=== PATIENT | male | born 1955 | race American Indian/Alaskan Native ===

== ENCOUNTER 2018-04-03 05:07 | Emergency (ER) | payer SELFPAY ==
[2018-04-03 06:02] LABS: Basophils % (Auto) 0.7 % (0.0-1.8); Eosinophils % (Auto) 0.7 % (0.0-4.3); Hematocrit 42.5 % (35.5-45.6); Hemoglobin 14.8 gm/dl (11.8-15.2); Lymphocytes # (Auto) 1.2 K/mm3 (1.2-5.4); Lymphocytes % (Auto) 21.1 % (13.4-35.0); Mean Corpuscular HGB Conc 35 % (32-34); Mean Corpuscular Hemoglobin 33 pg (28-32); Mean Corpuscular Volume 94 fl (84-94); Monocytes # (Auto) 0.6 K/mm3 (0.0-0.8); Monocytes % (Auto) 10.8 % (0.0-7.3); Platelet Count 196 K/mm3 (140-440); Red Blood Count 4.51 M/mm3 (3.65-5.03); Red Cell Distribution Width 13.5 % (13.2-15.2)
--- NOTE | 2018-04-03 06:09 | Emergency Department Report ---
ED General Adult HPI - General Chief complaint: BP Check / Ring removal req Stated complaint: OVERDOSE Time Seen by Provider: 04/03/18 06:07 Source: patient, EMS Mode of arrival: Stretcher Limitations: No Limitations - History of Present Illness Initial comments: Patient said he smoked cocaine at around 2:00 this morning. He currently does not have any complaints in the ED. -: This morning Improves with: none Worsens with: none Associated Symptoms: denies other symptoms Treatments Prior to Arrival: none - Related Data Previous Rx's Medication Instructions Recorded Last Taken Type HYDROcodone/APAP 5-325 [Carson 1 each PO Q6HR PRN #20 tablet 11/08/14 Unknown Rx 5-325 mg TAB] Naproxen [Naprosyn] 500 mg PO BID #30 tablet 11/08/14 Unknown Rx methOCARBAMOL [Robaxin] 500 mg PO BID #30 tab 11/08/14 Unknown Rx methylPREDNISolone [Medrol Dose 4 mg PO DAILY #6 tab 11/08/14 Unknown Rx Esteban] Allergies Allergy/AdvReac Type Severity Reaction Status Date / Time No Known Allergies Allergy Verified 04/03/18 05:15 ED Review of Systems ROS: Stated complaint: OVERDOSE Other details as noted in HPI Comment: All other systems reviewed and negative Constitutional: no symptoms reported Eyes: denies: eye pain ENT: denies: ear pain Respiratory: no symptoms reported Cardiovascular: denies: chest pain, palpitations, dyspnea on exertion Endocrine: no symptoms reported Gastrointestinal: denies: abdominal pain, nausea, vomiting, diarrhea Genitourinary: denies: urgency, frequency Musculoskeletal: denies: back pain, joint swelling Skin: denies: rash, change in color Neurological: denies: headache, weakness, numbness Psychiatric: denies: anxiety, depression, auditory hallucinations Hematological/Lymphatic: denies: easy bleeding, easy bruising ED Past Medical Hx - Past Medical History Hx COPD: Yes - Surgical History Additional Surgical History: back surgery - Social History Smoking Status: Current Every Day Smoker Substance Use Type: Cocaine - Medications Home Medications: Home Medications Medication Instructions Recorded Confirmed Last Taken Type HYDROcodone/APAP 5-325 [Carson 1 each PO Q6HR PRN #20 tablet 11/08/14 Unknown Rx 5-325 mg TAB] Naproxen [Naprosyn] 500 mg PO BID #30 tablet 11/08/14 Unknown Rx methOCARBAMOL [Robaxin] 500 mg PO BID #30 tab 11/08/14 Unknown Rx methylPREDNISolone [Medrol Dose 4 mg PO DAILY #6 tab 11/08/14 Unknown Rx Esteban] ED Physical Exam - General Limitations: No Limitations General appearance: alert, in no apparent distress - Head Head exam: Present: atraumatic. Absent: normocephalic, normal inspection - Eye Eye exam: Present: PERRL, EOMI. Absent: normal appearance Pupils: Present: normal accommodation - ENT ENT exam: Present: normal exam, normal orophraynx, mucous membranes moist - Neck Neck exam: Present: normal inspection - Respiratory Respiratory exam: Present: normal lung sounds bilaterally. Absent: respiratory distress, rales, rhonchi - Cardiovascular Cardiovascular Exam: Present: regular rate, normal rhythm, normal heart sounds - GI/Abdominal GI/Abdominal exam: Present: soft, normal bowel sounds. Absent: distended, tenderness, guarding, rebound - Extremities Exam Extremities exam: Present: normal inspection, full ROM, normal capillary refill - Back Exam Back exam: Present: normal inspection, full ROM - Neurological Exam Neurological exam: Present: alert, oriented X3, CN II-XII intact - Psychiatric Psychiatric exam: Present: normal affect, normal mood - Skin Skin exam: Present: warm, dry, intact, normal color. Absent: rash ED Course Vital Signs 04/03/18 04/03/18 04/03/18 05:10 05:54 06:00 Pulse Rate 105 H 88 88 Respiratory 12 10 L Rate Blood Pressure 80/50 148/90 O2 Sat by Pulse 99 100 100 Oximetry 04/03/18 06:16 Pulse Rate 86 Respiratory 10 L Rate Blood Pressure 148/89 O2 Sat by Pulse 100 Oximetry - Reevaluation(s) Reevaluation #1: 04/03/18 09:31 On reevaluation patient said he felt fine and has no medical complaint at this time. I'll discharge him home. He was counseled to stop using cocaine. ED Medical Decision Making - Lab Data Result diagrams: 04/03/18 05:38 04/03/18 05:38 - Radiology Data Radiology results: report reviewed - Medical Decision Making Cocaine Abuse. Critical care attestation.: If time is entered above; I have spent that time in minutes in the direct care of this critically ill patient, excluding procedure time. ED Disposition Clinical Impression: Cocaine abuse Disposition: DC-01 TO HOME OR SELFCARE Is pt being admited?: No Does the pt Need Aspirin: No Condition: Stable Instructions: Cocaine Abuse (ED) Additional Instructions: Please stop using cocaine. Follow-up with her regular doctor as needed. Return to the emergency room if the condition worsens. Referrals: PRIMARY CARE, [Primary Care Provider] - 3-5 Days SHANTELL HAGEN MD [Staff Physician] - 3-5 Days Time of Disposition: 09:33
[2018-04-03 06:13] LABS: BUN/Creatinine Ratio 9; Blood Urea Nitrogen 13 mg/dL (9-20); Calcium 9.9 mg/dL (8.4-10.2); Hemolysis Index 7
[2018-04-03 09:05] LABS: Bacteria,Urine 1+ /HPF (Negative); Bilirubin,Urine NEG (Negative); Blood,Urine SM (Negative); Color,Urine Yellow (Yellow); Hyaline Casts,Urine 3 /LPF; Mucus,Urine FEW /HPF; Sperm,Urine FEW /HPF (NP)
[2018-04-03 09:08] LABS: Amphetamine Screen,Urine PRESUMPTIVE NEGATIVE; Benzodiazepines Screen,Urine PRESUMPTIVE NEGATIVE; Cannabinoid Screen,Urine PRESUMPTIVE NEGATIVE; Methadone Screen,Urine PRESUMPTIVE NEGATIVE; Opiate Screen,Urine PRESUMPTIVE NEGATIVE
[2018-04-03 09:23] LABS: Cocaine Screen,Urine PRESUMPTIVE POSITIVE
[2018-04-03 09:50] VITALS: BP 177/113
== END 2018-04-03 09:53 | disposition home or self-care (01) ==
LOC: ED 05:07
DX: F14.10 Cocaine abuse, uncomplicated (principal); J44.9 Chronic obstructive pulmonary disease, unspecified; F17.200 Nicotine dependence, unspecified, uncomplicated; Z79.899 Other long term (current) drug therapy
CPT/HCPCS: 36415; 80048; 80307; 81001; 85025; 99283; G0480; 80320